=== PATIENT | male | born 1990 | race Two or more races ===

== ENCOUNTER 2018-11-05 07:43 | Emergency (ER) | payer OTHER ==
[~2018-11-05] VITALS: Ht 182.9 cm; Wt 90.0 kg
[2018-11-05] MEDS ORDERED: acetaminophen 325mg tablet PO ONE (08:20)
[2018-11-05] MEDS ORDERED: ketorolac trometh inj. 60 MG/2 ML VIAL IM ONE (08:20)
[2018-11-05] MEDS ORDERED: AZIT250T2 PO (09:22)
[2018-11-05] MEDS ORDERED: TAM75C PO (09:22)
[2018-11-05] MEDS ORDERED: HYDR-4353 PO (09:23)
[2018-11-05 09:48] VITALS: BP 138/83
== END 2018-11-05 09:54 | disposition home or self-care (01) ==
LOC: ER 07:44
DX: J20.9 Acute bronchitis, unspecified (principal); G89.29 Other chronic pain; F31.9 Bipolar disorder, unspecified; Z88.8 Allergy status to other drugs, medicaments and biological substances
CPT/HCPCS: 71045; 96372; 99283; J1885

== ENCOUNTER 2019-04-30 20:38 | Emergency (ER) | payer MEDICARE, OTHER ==
[~2019-04-30] VITALS: Ht 182.9 cm; Wt 93.6 kg
[2019-04-30 23:16] VITALS: BP 125/70
== END 2019-04-30 23:18 | disposition home or self-care (01) ==
LOC: ER 20:39
DX: J02.9 Acute pharyngitis, unspecified (principal); G89.29 Other chronic pain; Z88.8 Allergy status to other drugs, medicaments and biological substances
CPT/HCPCS: 99281

== ENCOUNTER 2024-01-15 06:22 | Emergency (ER) | payer MEDICAID ==
[~2024-01-15] VITALS: Ht 182.9 cm; Wt 100.7 kg
[2024-01-15 06:26] VITALS: TEMP 98.6
[2024-01-15 07:12] VITALS: BP 126/88; PULSE 85; RESP 17; O2SAT 98
== END 2024-01-15 07:27 | disposition home or self-care (01) ==
LOC: ER 06:24
DX: H92.01 Otalgia, right ear (principal); F31.9 Bipolar disorder, unspecified; Z88.8 Allergy status to other drugs, medicaments and biological substances
CPT/HCPCS: 99282

== ENCOUNTER 2024-02-28 17:04 | Emergency (ER) | payer MEDICAID ==
[~2024-02-28] VITALS: Ht 182.9 cm; Wt 78.2 kg
[2024-02-28] MEDS: LIDOcaine 1% 30ml preserv. free vial IJ ONE (18:17)
[2024-02-28] MEDS: LIDOcaine/PRILOcaine 5gm cream TP ONE (18:17)
[2024-02-28] MEDS: sulfamethoxazole/trimethoprim DS (800/160mg) tablet PO ONE (18:35)
[2024-02-28] MEDS ORDERED: SULF1TAB49 PO (18:36)
[2024-02-28] MEDS ORDERED: HYDR-3965 PO (18:36)
[2024-02-28] MEDS: HYDROcodone/acetaminophen 5mg/325mg tablet PO ONE (18:43)
[2024-02-28 19:02] VITALS: BP 126/82; PULSE 88; RESP 18; TEMP 98.7; O2SAT 96
== END 2024-02-28 19:03 | disposition home or self-care (01) ==
LOC: ER 17:04
DX: K13.0 Diseases of lips (principal); F31.9 Bipolar disorder, unspecified; Z88.8 Allergy status to other drugs, medicaments and biological substances
CPT/HCPCS: 10060; 99283; A6407; 10061; 99284; A6449

== ENCOUNTER 2024-10-29 21:27 | Emergency (ER) | payer MEDICAID ==
[~2024-10-29] VITALS: Ht 182.9 cm; Wt 100.9 kg
[2024-10-29 21:29] VITALS: BP 153/90; PULSE 97; O2SAT 100
[2024-10-29] MEDS ORDERED: DOXY-462 PO (21:44)
[2024-10-29] MEDS ORDERED: CEPH-585 PO (21:44)
[2024-10-29 22:05] VITALS: RESP 16; TEMP 98.7
[2024-10-29] MEDS: cephalexin 250mg capsule PO ONE (22:10)
[2024-10-29] MEDS: ceFAZolin 1gm IM kit IM ONE (22:11)
== END 2024-10-29 22:23 | disposition home or self-care (01) ==
LOC: ER 21:29
DX: N48.22 Cellulitis of corpus cavernosum and penis (principal); F31.9 Bipolar disorder, unspecified; Z91.048 Other nonmedicinal substance allergy status
CPT/HCPCS: 96372; 99283; J0690

== ENCOUNTER 2024-12-03 16:12 | Emergency (ER) | payer MEDICAID ==
[~2024-12-03] VITALS: Ht 182.9 cm; Wt 106.3 kg
[2024-12-03 16:27] VITALS: BP 157/96; PULSE 80; RESP 18; TEMP 97.8; O2SAT 98
== END 2024-12-03 18:34 | disposition left against medical advice (07) ==
LOC: ER 16:13
DX: M54.2 Cervicalgia (principal); Z88.8 Allergy status to other drugs, medicaments and biological substances; Z53.21 Procedure and treatment not carried out due to patient leaving prior to being seen by health care provider

== ENCOUNTER 2025-05-11 21:38 | Inpatient (IN) | payer MEDICAID ==
[~2025-05-11] VITALS: Ht 182.9 cm; Wt 101.3 kg
--- NOTE | 2025-05-11 22:45 | Physician Documentation ---
History of Present Illness ~ Chief Complaint: Abscess Stated Complaint: ABSCESS Time Seen by MD: 22:05 OK to notify your PCP?: Yes Primary Medical Doctor: MICHELLE ANGUIANO Source: patient Mode of Arrival: POV Exam Limitations: no limitations HPI 34-year-old male presents with left wrist abscess and read this which is traveling up the arm. He does have edema down into his hand and is unable to make a fist. He reports this happened 4-5 days ago [place] thorny perez. He has a history of MRSA but it has been greater than 6 months. He also reports having chills, weakness and low energy. Tetanus Within 5 Years: No Medication Reconciliation Allergies: Coded Allergies: lithium (Verified Allergy, Unknown, RASH, 12/03/24) Past Medical History Past Medical History: Chronic Pain, Bipolar Past Surgical History: no surgical history Alcohol Use: None Drug Use: none Lives with: S/O Lives In: Home Review of Systems All Other Systems at this time: Reviewed and Negative Physical Exam Vital Signs: RN Vital Signs have been reviewed: Yes, Temperature: 98.1, Source: Temporal, Heart Rate: 96, Respiratory Rate: 18, BP: 117/74, Pulse Oximetry: 97, Weight: 101.350 Pulse Oximetry Reflects: adequate oxygenation Physical Exam General: Alert, no distress. HEENT: No injection, moist mucous membranes. Neck: Full range of motion. Respiratory: No respiratory distress, equal chest rise and fall. Chest: No accessory muscle use. Cardiovascular: Regular rate and rhythm. Gastrointestinal: Nondistended. Extremities: Circumferential edema and erythema to left forearm, wrist and hand with warmth and tenderness to palpation. There is an open draining wound to ulnar aspect of left wrist. Neurologic: Oriented x4. Psychiatric: Normal mood and affect. Skin: Normal color, warm and dry. Progress Results/Orders Reviewed/noted all lab results: Yes Results/Orders Orders - TATA VIEIRA PLAYER MANAGER BMP (05/11/25 22:40) Culture Blood (05/11/25 22:40) Urinalysis, Cult If Indicated (05/11/25 22:40) Monitor (05/11/25 22:40) Oxygen (05/11/25 22:40) Saline Lock (05/11/25 22:40) Procalcitonin (05/11/25 22:40) Lacticsepsis (05/11/25 22:40) Wrist, Complete (3vw Min) (05/11/25 22:55) Morphine 4mg/Ml Inj. (Morphine Inj.) (05/11/25 22:45) Ondansetron Inj. (Zofran 4mg/2ml Vial) (05/11/25 22:45) Piperacillin/Tazo 3.375gm/50ml (Zosyn 3. (05/11/25 22:45) Page Hospitalist (05/11/25 22:57) Fill Out Med Reconciliation (05/11/25 22:57) Hgb A1c (05/11/25 22:53) MG (05/11/25 22:53) PBNP (05/11/25 22:53) C-Reactive Protein (05/11/25 22:53) Completed Orders - TATA VIEIRA PLAYER MANAGER Cbc/Diff (05/11/25 22:40) Wrist, Complete (3vw Min) (05/11/25 22:55) Vital Signs 05/11/25 21:53 Temp 98.1 Pulse 96 Resp 18 B/P (MAP) 117/74 Pulse Ox 97 Laboratory Tests Test 05/11/25 22:53 White Blood Count 15.1 H Red Blood Count 4.46 L Hemoglobin 12.2 L Hematocrit 37.7 L Mean Corpuscular Volume 84.4 Mean Corpuscular Hemoglobin 27.3 Mean Corpuscular Hemoglobin Concent 32.3 L Red Cell Distribution Width 14.9 H Platelet Count 364 Mean Platelet Volume 7.3 L Neutrophils (%) (Auto) 84.2 H Lymphocytes (%) (Auto) 6.7 L Monocytes (%) (Auto) 6.6 Eosinophils (%) (Auto) 2.3 Basophils (%) (Auto) 0.2 Neutrophils # (Auto) 12.7 H Lymphocytes # (Auto) 1.0 L Monocytes # (Auto) 1.0 H Eosinophils # (Auto) 0.3 Basophils # (Auto) 0.0 CBC Comment Coagulation Comments Sodium Level 139 Potassium Level 3.3 L Chloride Level 102 Carbon Dioxide Level 28.9 Anion Gap 8 Blood Urea Nitrogen 10 Creatinine 1.18 H Estimated GFR/1.73 m2 70 BUN/Creatinine Ratio 8.5 L Glucose Level 90 Calcium Level 8.6 Albumin 3.2 L Chemistry Comments EKG/XRAY/CT/US/VASC/MRI Bone/Soft Tissue X-Ray (Ext.) : Additional Comment Left wrist x-ray as interpreted by me; no joint effusion, no acute fracture, no dislocation, or foreign body. Medical Decision Making Additional info obtained from: old records Findings 34-year-old male presents with edema and erythema to left arm which is extending from the wound to the left wrist down into his hand wears unable to make a fist due to swelling and up towards his elbow with circumferential swelling. He scratched it on a perez 4-5 days ago found by the [place] and it has been getting worse ever since. He has been having chills, weakness and general fatigue. He has a history of MRSA over 6 months ago. He has not started taking any antibiotics or been seen for this arm yet. I consulted with Dr. Carey who examined the patient as well and recommends admission for IV antibiotics. I ordered sepsis bundle labs and started him on Zosyn IV. I paged hospitalist who accepted admission and requested a wrist x-ray which I ordered. 2300: HOSPITALIST AT BEDSIDE. Differential Dx:Considerations: Include: Erysipelas, Gas gangrene, Impetigo, Osteromyelitis Departure Disposition: ADMITTED INPATIENT Impression: Primary Impression: Cellulitis Referrals: NO PRIMARY CARE PROVIDER (PCP) Additional Comment Medical Screen Exam This patient recieved a medical screening examination. After reviewing the individual's medical complaints with presenting symptoms and performing an appropriate physical examination, it was determined that no immediate life-threatening emergency medical condition is present. This individual is also not a women having contractions. Signature Scribe Signature: . Attestation: Scribed for Tata Vieirap by Tata Baires NP . 05/11/25 23:21 Parts of this note were created using [employer] voice recognition software program. While efforts were made to correct any mistakes made by this voice recognition software program, nonsensical phrases may remain in this note. In addition, there may be errors and syntax, grammar, content and spelling. TATA VIEIRAP May 11, 2025 22:45
[2025-05-11] MEDS ORDERED: ondansetron/PF 4mg/2ml inj IV PRN (22:55)
[2025-05-11] MEDS ORDERED: potassium Cl 20 mEq SR tablet PO PRN (22:55)
[2025-05-11] MEDS ORDERED: mag hydrox/Alum hydrox/simeth 30ml oral suspension PO PRN (22:55)
[2025-05-11] MEDS ORDERED: magnesium hydroxide 30ml (MOM) UD suspension PO PRN (22:55)
[2025-05-11] MEDS ORDERED: magnesium sulf-water 4G/100mL 100 ML IV PRN (22:55)
[2025-05-11] MEDS ORDERED: magnesium sulf-water 2g/50mL 50 ML IV PRN (22:55)
[2025-05-11] MEDS ORDERED: HYDROcodone/acetaminophen 5mg/325mg tablet PO PRN (22:55)
[2025-05-11] MEDS ORDERED: magnesium Cl slow-release 64mg tablet PO PRN (22:55)
[2025-05-11] MEDS ORDERED: potassium Cl 40MEQ/1/2NS 520ml 520 ML IV PRN (22:55)
[2025-05-11 23:03] LABS: MEAN PLATELET VOLUME 7.3 FL (7.4-10.4); RED CELL DISTRIBUTION WIDTH 14.9 % (11.5-14.5)
[2025-05-11 23:10] LABS: CREATININE 1.18 MG/DL (0.60-1.10); TOTAL CARBON DIOXIDE 28.9 MMOL/L (24-32); eCRCL 95 ML/MIN; eGFR 70 ML/MIN
[2025-05-11 23:24] LABS: APTT 29 SECONDS (22-32); INR 1.0 INR
[2025-05-11 23:32] LABS: PRO BRAIN NATRIURETIC PEPTIDE 37 PG/ML (0-125)
--- NOTE | 2025-05-11 23:38 | HISTORY AND PHYSICAL-Residence ---
History & Physical Providers to CC Resident Creating Document: LINDSEY BAH, RES ~ History of Present Illness Primary Medical Doctor: MICHELLE ANGUIANO Reason for Admit\Complaint: Left arm pain History of Present Illness This is a 34-year-old male with past medical history of MRSA groin infection, methamphetamine use presents to the ER with chief complaint of pain in his left arm. Patient states that his wrist was rubbed against some Thorny bushes four days ago after which he developed erythema, discharge from the wound site. Today he also developed some redness and nodules in his left flexor elbow area and has worsening pain radiating to whole of his arm and biceps. He rates his pain is 10/10 radiating to his whole arm. He denies any fever, blood loss. He took Tylenol for pain with no relief. He has not taken any oral antibiotics till now. Allergies: Coded Allergies: lithium (Verified Allergy, Unknown, RASH, 12/03/24) Home Medications Home Medications Active Past Medical History Past Medical History MRSA groin infection Past Surgical History Surgical History Comment None Past Social History Social History Comment Denies smoking, drinks alcohol occasionally. Uses methamphetamine, last use was one and half day ago. Alcohol Use: None Drug Use: None Lives with: S/O Lives In: Home ROS All Other Systems: Reviewed and Negative Exam Vitals: Vital Signs Date Time Temp Pulse Resp B/P (MAP) Pulse Ox O2 Delivery O2 Flow Rate FiO2 05/11/25 21:53 98.1 96 18 117/74 97 General: General: Alert, awake and oriented. mild acute distress. HEENT: PERRLA normal, moist mucous membranes. Neck: Full range of motion. Respiratory: No respiratory distress, equal chest rise and fall. Chest: No accessory muscle use. Cardiovascular: Regular rate and rhythm. Gastrointestinal: Nondistended. Extremities: Circumferential edema and erythema to left forearm, wrist and hand with warmth and tenderness to palpation. Hard lymph nodes palpated in the left forearm on the flexor surface suspicious for sporotrichosis infection pattern. There is an open draining wound on extensor aspect of left wrist with honey crusted discharge. Neurologic: Oriented x4. Psychiatric: Normal mood and affect. Skin: Normal color, warm and dry. Diagnostic Data Last Recorded Lab Results: 05/11/25225205/11/252252 Diagnostic Data: Laboratory Tests Test 05/11/25 22:53 Prothrombin Time 10.4 SECONDS (9.0-12.0) INR International Normalized Ratio 1.0 INR Activated Partial Thromboplast Time 29 SECONDS (22-32) Coagulation Comments Advance Care Planning Advanced Care plannin - 30 Minutes (I spent a total of 17 minutes on reviewing various resuscitative measures/ ACP with the patient at the time of admission. The patient has decided on a full code status) Additional Plan Sporotrichosis infection Cellulitis History of MRSA groin infection Consult ID in the a.m. Started on IV vancomycin pharmacy to dose Also started on liposomal amphotericin B 400 mg IV as itraconazole is not available at our hospital. Consult pharmacy in the a.m. to check if itraconazole 200 mg b.i.d. can be administered which is first-line medication. NS at the rate of 100 mL/hour. Follow up with ESR, CRP, slightly elevated lactic acid 1.5, procalcitonin 0.21. CT of the left upper extremity ordered and wrist x-ray ordered. Follow up RANJAN likely secondary to renal tubular stasis Continue IV fluids Mild hypokalemia Potassium replacement per protocol Mild protein calorie malnutrition Albumin is 3.2. Ensure enlive t.i.d. Code Status: Full code DVT Prophylaxis: Heparin Analgesia/Sedation: [place] p.r.n. Lines/Tubes: PIV Gi Prophylaxis: None Nutrition: Regular diet PT: Yes Prognosis: Guarded Disposition: Admit to surgical floor. Pending ID consultation Lindsey Quintana MD Internal Medicine Resident PGY-1 Date of Service: May 11, 2025 Billing Provider: SHAVONNE RAYMOND MD,LINDSEY QUINTANA, RES May 11, 2025 23:38
[2025-05-11] MEDS ORDERED: AMPHOTERICIN B 50 MG IJ SCH (23:45)
--- NOTE | 2025-05-11 23:54 | RADIOLOGY REPORT ---
CLINICAL INDICATION: left wrist abscess/wound TECHNIQUE: DI WRIST, COMPLETE (3VW MIN) Comparison: None FINDINGS/IMPRESSION: : There is no evidence of acute fracture or dislocation. Moderate Subcutaneous edema in the left forearm extending into the dorsum of the left wrist and hand. No radiopaque foreign body.
[2025-05-11] MEDS: ondansetron/PF 4mg/2ml inj IV ONE (23:55)
[2025-05-11] MEDS: morphine 4 MG/ML inj SYRINge IV ONE (23:56)
[2025-05-11] MEDS: normal saline 1000ml 1,000 ML IV SCH (23:56)
[2025-05-11] MEDS: piperacillin/tazo 3.375gm/50ml 50 ML IV ONE (23:56)
[2025-05-12] VITALS (7 sets, daily range): BP systolic 108–121; BP diastolic 60–84; PULSE 65–86; RESP 14–19; TEMP 98–98.6; O2SAT 97–99
[2025-05-12] MEDS ORDERED: VANCOMYCIN/H2O 1.75g/350mL PB 350 ML IV ONE (01:00)
[2025-05-12] MEDS: potassium Cl 20 mEq SR tablet PO PRN (01:43)
[2025-05-12] MEDS: HYDROcodone/acetaminophen 10/325mg tab PO PRN (01:44)
[2025-05-12 02:12] LABS: LEUKOCYTE ESTERASE ,URINE NEGATIVE (Neg); NITRITES, URINE NEGATIVE (Neg); OCCULT BLOOD,URINE NEGATIVE (Neg)
--- NOTE | 2025-05-12 02:16 | RADIOLOGY REPORT ---
INDICATION: Abscess in the wrist COMPARISON: None TECHNIQUE: CT of the left forearm and wrist was performed without contrast. Volume transverse images were obtained and reconstructed in multiple planes using bone and soft tissue algorithms. CONTRAST: None Radiation Dose Information: CTDI volume is 3.04 mGy. Dose-length product is 162.07 mGy*cm FINDINGS: The alignment is normal. The joint spaces are normal. The joints are well preserved. There is no fracture, dislocation, or focal osseous lesion. Moderate diffuse soft tissue swelling and edema throughout the medial forearm from the level of the e lbow to the wrist and extending into the dorsum of the hand. 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 IMPRESSION: 1. Diffuse soft tissue swelling and edema throughout the medial forearm and dorsal hand, possibly con sistent with phlegmonous change, without discrete organized fluid collection to suggest abscess. 2. No evidence of acute osseous abnormality. 3. All CT scans at this medical facility are performed using dose modulation techniques as appropriat e to a performed exam including the following: Automated exposure control was utilized; adjustment of the MA and/or KV according to patient size; and use of iterative reconstruction technique.
[2025-05-12 02:29] LABS: UA COLLECTION TYPE NON-SPECIFIED
[2025-05-12 02:31] LABS: MUCUS STRANDS FEW /LPF (Neg); SQUAMOUS EPITHELIAL CELL,UR FEW /LPF (FEW)
[2025-05-12] MEDS ORDERED: VANCOMYCIN 1,500MG inj. 1,500 MG in normal saline 500ml IV soln 300 ML IV ONE (02:50)
[2025-05-12] MEDS ORDERED: NALT50TA5 PO (03:13)
[2025-05-12] MEDS ORDERED: BUPR150T27 PO (03:13)
[2025-05-12] MEDS ORDERED: NALO4SPR BOTHNARES (03:14)
[2025-05-12] MEDS: vancomycin inj 1,750 MG in normal saline 500ml IV soln 350 ML IV ONE (03:24)
[2025-05-12 04:37] LABS: MEAN PLATELET VOLUME 7.7 FL (7.4-10.4); RED CELL DISTRIBUTION WIDTH 15.1 % (11.5-14.5)
[2025-05-12 04:51] LABS: CHOL/HDL RATIO 2.9 (0.00-4.99); CREATININE 1.03 MG/DL (0.60-1.10); LDL CHOLESTEROL 64 MG/DL (50-100); TOTAL CARBON DIOXIDE 27.5 MMOL/L (24-32); eCRCL 109 ML/MIN; eGFR 82 ML/MIN
[2025-05-12] MEDS: heparin, porcine 5000 units/ml vial SQ SCH (07:57)
[2025-05-12] MEDS: lactose-reduced food (Ensure Enlive) - 237ml bottle PO SCH (08:00)
[2025-05-12] MEDS: docusate sod 100mg capsule PO SCH (08:00)
[2025-05-12] MEDS: K and/or MAG REPLACEMENT MC SCH (08:00)
[2025-05-12] MEDS: piperacillin/tazo 3.375gm/50ml 50 ML IV SCH (08:29)
[2025-05-12] MEDS: vancomycin/NS 1 GM ADD-VANTAGE 250 ML IV SCH (11:47)
[2025-05-12] MEDS ORDERED: VANCOMYCIN/H2O 1.25G/250mL PB 250 ML IV SCH (13:00)
--- NOTE | 2025-05-12 22:02 | PROGRESS NOTE ---
Daily Progress Note Providers to CC ~ Antibiotic Timeout Antibiotic Ordered?: Yes Subjective The patient continues to have significant swelling in his left upper extremity- culture was obtained in the ED the forearm was spontaneously draining however is in the longer draining CT scan demonstrated a phlegmon but no joshua abscess Objective Vital Signs Date Time Temp Pulse Resp B/P (MAP) Pulse Ox O2 Delivery O2 Flow Rate FiO2 05/12/25 21:12 16 05/12/25 17:51 98.0 68 117/67 (84) 97 05/12/25 10:00 Room Air 05/12/25 09:55 0.0 Result Diagram: 05/12/2540105/12/25401 Gen. No acute distress alert and oriented 4 Lungs clear to ascultation bilaterally, no wheezes rales or rhonchi appreciated Heart normal sinus rhythm no murmurs rubs or clicks noted Abdomen soft nontender bowel sounds are normoactive Lower extremities no clubbing cyanosis, nor edema appreciated bilaterally Upper extremity left significant region of erythema and edema just proximal to the wrist Coagulation Studies Laboratory Tests Test 05/11/25 22:53 Prothrombin Time 10.4 SECONDS (9.0-12.0) INR International Normalized Ratio 1.0 INR Activated Partial Thromboplast Time 29 SECONDS (22-32) Coagulation Comments Problem\Assessment\Plan Problems/Diagnosis: (1) Cellulitis # left upper extremity phlegmon- IV vancomycin IV Zosyn Lamisil 500 mg p.o. b.i.d. Consider Infectious Disease consult # kidney disease Daily metabolic panels are ordered to evaluate for RANJAN # DVT prophylaxis SQ heparin Date of Service: May 12, 2025 Billing Provider: JOSE COLLAZO DO Common Visit Codes: 85818-[id number] INP/OBS CARE(HIGH) JOSE COLLAZO DO May 12, 2025 22:02
[2025-05-13] MEDS: VANCOMYCIN LEVEL IV ONE (02:30)
[2025-05-13 04:36] LABS: MEAN PLATELET VOLUME 7.7 FL (7.4-10.4); RED CELL DISTRIBUTION WIDTH 15.1 % (11.5-14.5)
[2025-05-13 04:47] LABS: CREATININE 1.04 MG/DL (0.60-1.10); TOTAL CARBON DIOXIDE 28.0 MMOL/L (24-32); eCRCL 108 ML/MIN; eGFR 81 ML/MIN
[2025-05-13 07:02] VITALS: BP 119/67; PULSE 65; RESP 14; TEMP 97.6; O2SAT 97
[2025-05-13 08:57] VITALS: RESP 16
[2025-05-13 10:00] VITALS: BP 125/70; PULSE 70; RESP 16; TEMP 97.5; O2SAT 96
[2025-05-13] MEDS: VANCOmycin 1250MG/NS 250ml Bag 250 ML IV SCH (12:31)
[2025-05-13 18:00] VITALS: BP 152/98; PULSE 75; RESP 17; TEMP 98; O2SAT 99
[2025-05-13 18:14] VITALS: BP 152/98; PULSE 75; RESP 17; TEMP 98; O2SAT 99
--- NOTE | 2025-05-13 20:26 | PROGRESS NOTE ---
Daily Progress Note Providers to CC ~ feels better today, less swelling less redness less pain in the upper extremity to the left Central Line/PICC still needed: No Ascencio-Non Protocol Ascencio Indications Met/Not Met: F/C Indications Not Met Antibiotic Timeout Antibiotic Ordered?: Yes MRSA Education MRSA Education Provided to pt: Yes Subjective As above Objective Vital Signs Date Time Temp Pulse Resp B/P (MAP) Pulse Ox O2 Delivery O2 Flow Rate FiO2 05/13/25 19:31 Room Air 05/13/25 18:14 98.0 75 17 152/98 (116) 99 05/12/25 09:55 0.0 Vital signs, stable ,afebrile. Pulse Oximetry reflects adequate oxygenation. BMI is 3 0, weight 101 kg General: well developed, well nourished. Awake , alert, and oriented x4, resting comfortably in the bed, in no acute distress . Skin: Warm, dry, no pallor, no rash or petechiae. HEENT: Atraumatic, normocephalic, EOMI, anicteric sclera B; pink conjunctiva; PERRLA, normal oropharynx, moist oral and nasal mucosa. Tympanic membrane , nose , throat clear. Neck: Trachea midline. Supple, full range of motion, no JVD, bruit , hepatojugular reflex , lymphadenopathy or masses, or other lesions Cardiac: Regular rhythm, regular rate no murmurs, rubs, or gallops. Normal S1 and S2, no S3 noticed. PMI is normal. Respiratory: Equal breath sounds bilaterally, no tachypnea; lungs clear to auscultation bilaterally, no wheezing ,rub or rales, or crackles. Chest wall is symmetric and without deformity. No signs of trauma. Chest wall is nontender. No signs of respiratory distress. Resonance is normal upon percussion bilaterally. Gastrointestinal: Abdomen symmetric, non-distended, soft, non-tender, normal bowel sounds x4 quadrant, normoactive, no hepatosplenomegaly , no masses , no bruit, no flank pain bilaterally. No voluntary guarding, rebound, or rigidity. No tenderness to percussion. No pulsatile masses. Equal femoral pulses. No Huang's sign or McBurney point tenderness. Back; no CVA tenderness bilaterally, no deformities. Neck and back are without deformity as well. No tenderness noted on palpation of the spinous processes. Spinous processes are midline. Cervical, thoracic, and lumbar paraspinal muscles are not tender and are without spasm. : normal external genitalia, without lesions, swelling, masses or tenderness. Musculoskeletal: Extremities, normal range of motion, non-tender, muscle strength 5/5 x 4. Negative Homans signs bilaterally on lower extremity. Distal pulses full symmetrical, no clubbing, cyanosis , edema. Locally, left lower extremity plus three edema red tender to palpation neurovascular grossly intact no subcutaneous fluctuation or crepitation Neurological: Speech is clear, alert, and oriented x 4. No motor or sensory deficit, deep tendon reflexes normal, cerebellar intact. Cranial nerves II-XII intact. Psych: Alert and or appropriate, normal affect. Vascular: Good distal pulses, which are equal x4; capillary refill less than 2 seconds. Lymphatic, no lymphadenopathy. Result Diagram: 05/13/252 05/13/25 0402 Coagulation Studies Laboratory Tests Test 05/11/25 22:53 Prothrombin Time 10.4 SECONDS (9.0-12.0) INR International Normalized Ratio 1.0 INR Activated Partial Thromboplast Time 29 SECONDS (22-32) Coagulation Comments Problem\Assessment\Plan Problems/Diagnosis: (1) Cellulitis Assessment/plan # left upper extremity phlegmon- IV vancomycin IV Zosyn Lamisil 500 mg p.o. b.i.d. Consider Infectious Disease consult # kidney disease Daily metabolic panels are ordered to evaluate for RANJAN # DVT prophylaxis SQ heparin Sepsis Screening Reassessment Date: May 13, 2025 Date of Service: May 13, 2025 Billing Provider: ISAIAH SIMS MD Common Visit Codes: 52647-[id number] INP/OBS CARE(HIGH) ISAIAH SIMS MD May 13, 2025 20:26
[2025-05-13 22:00] VITALS: BP 121/73; PULSE 79; RESP 18; TEMP 97.4; O2SAT 98
[2025-05-14 04:36] LABS: MEAN PLATELET VOLUME 7.5 FL (7.4-10.4); RED CELL DISTRIBUTION WIDTH 15.0 % (11.5-14.5)
[2025-05-14 04:49] LABS: CREATININE 0.99 MG/DL (0.60-1.10); TOTAL CARBON DIOXIDE 30.5 MMOL/L (24-32); eCRCL 113 ML/MIN; eGFR 86 ML/MIN
[2025-05-14 07:04] VITALS: BP 129/90; PULSE 67; RESP 18; TEMP 97.8; O2SAT 98
[2025-05-14 10:00] VITALS: BP 129/73; RESP 17; TEMP 97.9; O2SAT 97
[2025-05-14] MEDS ORDERED: VANCOMYCIN LEVEL IV ONE (10:30)
[2025-05-14] MEDS ORDERED: CIPR-202 PO (12:59)
--- NOTE | 2025-05-14 19:35 | DISCHARGE SUMMARY ---
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 History of of MRSA infection hypokalemia mild Nutrition Chronic amphetamine abuse including currently Hospital Course DATE OF ADMISSION: May 11, 2025 DATE OF DISCHARGE: May 14, 2025 Discharge Diagnosis\Comment: Left upper extremity cellulitis 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 Patient states that his wrist was rubbed against some Thorny bushes four days ago after which he developed erythema, discharge from the wound site. Today he also developed some redness and nodules in his left flexor elbow area and has worsening pain radiating to whole of his arm and biceps. He rates his pain is 10/10 radiating to his whole arm. He denies any fever, blood loss. He took Tylenol for pain with no relief. He has not taken any oral antibiotics till now. To admission patient was extensively evaluated treated including IV antibiotics, his condition improved, today he feels better minimal pain in the left upper extremity asking to be discharged home for family emergency reasons, he will be discharged in stable condition medication reconciled, recommended follow-up PCP and wound care in the morning, today on physical exam Vital signs, stable ,afebrile. Pulse Oximetry reflects adequate oxygenation. General: well developed, well nourished. Awake , alert, and oriented x4, resting comfortably in the bed, in no acute distress . Skin: Warm, dry, no pallor, no rash or petechiae. HEENT: Atraumatic, normocephalic, EOMI, anicteric sclera B; pink conjunctiva; PERRLA, normal oropharynx, moist oral and nasal mucosa. Tympanic membrane , nose , throat clear. Neck: Trachea midline. Supple, full range of motion, no JVD, bruit , hepatojugular reflex , lymphadenopathy or masses, or other lesions Cardiac: Regular rhythm, regular rate no murmurs, rubs, or gallops. Normal S1 and S2, no S3 noticed. PMI is normal. Respiratory: Equal breath sounds bilaterally, no tachypnea; lungs clear to auscultation bilaterally, no wheezing ,rub or rales, or crackles. Chest wall is symmetric and without deformity. No signs of trauma. Chest wall is nontender. No signs of respiratory distress. Resonance is normal upon percussion bilaterally. Gastrointestinal: Abdomen symmetric, non-distended, soft, non-tender, normal bowel sounds x4 quadrant, normoactive, no hepatosplenomegaly , no masses , no bruit, no flank pain bilaterally. No voluntary guarding, rebound, or rigidity. No tenderness to percussion. No pulsatile masses. Equal femoral pulses. No Huang's sign or McBurney point tenderness. Back; no CVA tenderness bilaterally, no deformities. Neck and back are without deformity as well. No tenderness noted on palpation of the spinous processes. Spinous processes are midline. Cervical, thoracic, and lumbar paraspinal muscles are not tender and are without spasm. : normal external genitalia, without lesions, swelling, masses or tenderness. Musculoskeletal: Extremities, normal range of motion, non-tender, muscle strength 5/5 x 4. Negative Homans signs bilaterally on lower extremity. Distal pulses full symmetrical, no clubbing, cyanosis , edema. Locally, left upper extremity plus two edema, mild redness present, neurovascular grossly intact Neurological: Speech is clear, alert, and oriented x 4. No motor or sensory deficit, deep tendon reflexes normal, cerebellar intact. Cranial nerves II-XII intact. Psych: Alert and or appropriate, normal affect. Vascular: Good distal pulses, which are equal x4; capillary refill less than 2 seconds. Lymphatic, no lymphadenopathy. *Problems/Diagnosis: (1) Cellulitis Status: Acute Total Time Spent on D/C: > 30 Minutes Date of Service: May 14, 2025 Billing Provider: ISAIAH SIMS MD Common Visit Codes: 24479-CZB/OBS DISCH DAY >30min ISAIAH SIMS MD May 14, 2025 19:35
== END 2025-05-14 14:00 | disposition home or self-care (01) | DRG 383 ==
LOC: ER 21:38 → ED HOLD 23:06 → SUR 3N 05-12 00:24
PROVIDERS: ADMIT Internal Medicine Sleep Medicine; ATTEND Family Medicine
DX: L03.114 Cellulitis of left upper limb (principal); B42.89 Other forms of sporotrichosis; E87.6 Hypokalemia; F15.10 Other stimulant abuse, uncomplicated; F31.9 Bipolar disorder, unspecified; N28.9 Disorder of kidney and ureter, unspecified; L02.414 Cutaneous abscess of left upper limb; Z88.8 Allergy status to other drugs, medicaments and biological substances; Z86.14 Personal history of Methicillin resistant Staphylococcus aureus infection
CPT/HCPCS: 36415; 73110; 73200; 80048; 80053; 80061; 80202; 81001; 83036; 83605; 83735; 83880; 84145; 85025; 85610; 85651; 85730; 86140; 87040; 87070; 87075; 87077; 87081; 87102; 87186; 99285; A6212; A6258; A6449; G0378; J1644; J2270; J2405; J2543; J3370; J7030; J7040

== ENCOUNTER 2025-07-14 16:38 | Emergency (ER) | payer MEDICAID ==
[~2025-07-14] VITALS: Ht 182.9 cm; Wt 106.9 kg
[~2025-07-14 16:38] MED LIST: NALO4SPR BOTHNARES; NALT50TA5 PO; [UNRECOGNIZED DRUG - CODE] PO
--- NOTE | 2025-07-14 17:29 | Physician Documentation ---
History of Present Illness ~ Chief Complaint: Rash Stated Complaint: CHEMICAL REACTION/CHEST ALEJANDRO Time Seen by MD: 19:51 Primary Medical Doctor: MICHELLE ANGUIANO [facility] This is a 35-year-old male who presents with a painful rash to his chest after using a generic hair removal cream approximately 1 hour prior to arrival. Patient reports he did thoroughly rinse the product off before coming to the emergency department. Medication Reconciliation Allergies: Coded Allergies: lithium (Verified Allergy, Unknown, RASH, 06/08/25) Scheduled Bupropion HCl (Bupropion Xl), 1 TAB PO DAILY, (Reported) Naltrexone Hcl (Naltrexone Hcl), 1 TAB PO HS, (Reported) Triamcinolone Acetonide 0.5% Crm* (Kenalog 0.5% Crm*), 1 APPLIC TOP Q12H Scheduled PRN Naloxone HCl (Narcan), 1 SPRAYS BOTHNARES ONCE PRN for resp rate < 8/min or SBP < 90, (Reported) Past Medical History Past Medical History: Chronic Pain, Bipolar Past Surgical History: no surgical history Alcohol Use: None Drug Use: none Lives with: S/O Lives In: Home Review of Systems ROS As stated above in the HPI, otherwise all systems are reviewed and negative. Physical Exam Vital Signs: Temperature: 97.8, Source: Temporal, Heart Rate: 79, Respiratory Rate: 16, BP: 130/93, Pulse Oximetry: 98, Weight: 106.900 Physical Exam VITALS: Reviewed and as above. GENERAL: Alert, nontoxic appearing, no apparent distress. HEENT: No facial rash, no facial swelling RESPIRATORY: No increased work of breathing, no respiratory distress, speaking in full clear sentences SKIN: Diffuse flat erythematous rash to skin of the chest, no blisters, no desquamation Progress Results/Orders Results/Orders Vital Signs 07/14/25 07/14/25 17:17 19:36 Temp 97.8 97.8 Pulse 79 62 Resp 16 16 B/P (MAP) 130/93 153/113 (126) Pulse Ox 98 98 Medical Decision Making Findings This is a 35-year-old male presented with a painful flat erythematous rash to his chest after utilizing a chemical depilatory, rash is consistent with chemical dermatitis. There is no evidence of rapidly progressing symptoms, crepitus, pain out of proportion, pain away from site or other signs/symptoms concerning for necrotizing fasciitis or myositis. No mucosal involvement, blisters or bullae, sloughing skin, or appearance concerning for SJS, TEN, SSSS, pemphigus vulgaris, or bullous pemphigoid. No airway compromise, angioedema or systemic signs/symptoms concerning for anaphylaxis. The patient is well-appearing and is hemodynamically stable. Treatment plan with topical steroid. Patient provided home care instructions. Patient given strict return precautions including rapidly progressing symptoms, pain out of proportion/severe pain, mucosal involvement, and/or fever>100.4. Patient verbalized understanding of all discharge instructions. Differential Dx:Considerations: Include: Abscess, Atopic dermatitis, Candidiasis, Contact dermatitis, Drug reaction, Erysipelas, Other (Chemical burn,) Departure Time of Disposition: 19:57 Disposition: 01 HOME / SELF CARE / HOMELESS Impression: Primary Impression: Irritant contact dermatitis due to chemical Condition: Improved Discharge Instructions: Contact Dermatitis Additional Instructions: Please use the prescribed ointment twice a day for the next week, you may also add a moisturizing skin cream without fragrance or additives. Please follow up with your primary care provider in the next few days. Please return to the emergency department for any new or worsening concerning symptoms. Referrals: NO PRIMARY CARE PROVIDER (PCP) Prescriptions Triamcinolone Acetonide 0.5% Crm* (Kenalog 0.5% Crm*) 15 Gm Tube 1 APPLIC TOP Q12H for 7 Days, #15 GM apply to affected area(s) Prov: ANTHONY JIN 07/14/25 Education Educated: Patient Educated regarding: diagnosis, treatment, prognosis, need for follow up Signature Scribe Signature: No scribe Attestation: The note accurately reflects work and decisions made by me.CURTIS Josue 07/15/25 16:36 ANTHONY JIN Jul 14, 2025 17:29
[2025-07-14 19:36] VITALS: BP 153/113; PULSE 62; RESP 16; TEMP 97.8; O2SAT 98
[2025-07-14] MEDS ORDERED: TRIA15CR61 TOP (20:00)
== END 2025-07-14 20:10 | disposition home or self-care (01) ==
LOC: ER 16:40
DX: L24.5 Irritant contact dermatitis due to other chemical products (principal); G89.29 Other chronic pain; F31.9 Bipolar disorder, unspecified; Z88.8 Allergy status to other drugs, medicaments and biological substances; Z79.899 Other long term (current) drug therapy
CPT/HCPCS: 99283